=== PATIENT | female | born 1960 | race American Indian/Alaskan Native ===

== ENCOUNTER 2018-02-04 05:09 | Observation (INO) | payer OTHER ==
[2018-02-04] MEDS ORDERED: DECADRON IV ONE (05:22)
[2018-02-04] MEDS ORDERED: BENADRYL IV ONE (05:22)
[2018-02-04] MEDS ORDERED: PEPCID IV ONE (05:23)
--- NOTE | 2018-02-04 05:28 | Emergency Department Report ---
HPI - General Chief Complaint: Allergic Reaction Time Seen by Provider: 02/04/18 05:24 - HPI HPI: 57-year-old female with a past medical history hypertension on Lisinopril for many years presents to the hospital complaints of tongue swelling since 3 AM. Patient noticed swelling to the left side of her tongue. Symptoms have worsened now spread to the right side of her tongue. Daughter's at the bedside state the swelling has worsened in the last 30 minutes. At this time patient is able to swallow secretions and does not complain of throat tightness. ED Past Medical Hx - Past Medical History Hx Hypertension: Yes - Surgical History Additional Surgical History: Hysterectomy - Social History Smoking Status: Current Every Day Smoker Substance Use Type: None - Medications Home Medications: Home Medications Medication Instructions Recorded Confirmed Last Taken Type HCTZ 25 mg PO DAILY 02/04/18 02/04/18 Unknown History Lisinopril [Zestril TAB] 40 mg PO QDAY 02/04/18 02/04/18 Unknown History ED Review of Systems ROS: Stated complaint: ALLERGIC REACTION Other details as noted in HPI Comment: All other systems reviewed and negative Physical Exam - Physical Exam Vital Signs: Vital Signs 02/04/18 05:16 Temperature 99.3 F Pulse Rate 89 Respiratory 18 Rate Blood Pressure 124/82 O2 Sat by Pulse 96 Oximetry Physical Exam: General: No limitations, patient is alert in no acute distress Head exam: Atraumatic, normocephalic Eyes exam: Normal appearance ENT: Moist mucous membrane, patient has tongue swelling left greater than right. Able to swallow secretions without difficulty breathing Neck exam: Normal inspection, full range of motion, no meningismus nontender Respiratory exam: Clear to auscultation bilateral, no wheezes, rales, crackles Cardiovascular: Normal rate and rhythm, normal heart sounds Abdomen: Soft, nondistended, and nontender, with normal bowel sounds, no rebound, or guarding Extremity: Full range of motion normal inspection no deformity Back: Normal Inspection, full range of motion, no tenderness Neurologic: Alert, oriented x3, cranial nerves intact, no motor or sensory deficit Psychiatric: normal affect, normal mood Skin: Warm, dry, intact ED Course Vital Signs 02/04/18 05:16 Temperature 99.3 F Pulse Rate 89 Respiratory 18 Rate Blood Pressure 124/82 O2 Sat by Pulse 96 Oximetry - Consultations Consultation #1: 02/04/18 05:28 case d/w Dr Teague with anesthesia regarding intubation, he will come to assess pt. ED Medical Decision Making - Lab Data Result diagrams: 02/04/18 05:40 02/04/18 05:40 Lab Results 02/04/18 02/04/18 Range/Units 05:40 05:40 WBC 5.7 (4.5-11.0) K/mm3 RBC 4.92 (3.65-5.03) M/mm3 Hgb 13.3 (10.1-14.3) gm/dl Hct 40.4 (30.3-42.9) % MCV 82 (79-97) fl MCH 27 L (28-32) pg MCHC 33 (30-34) % RDW 14.8 (13.2-15.2) % Plt Count 168 (140-440) K/mm3 Lymph % (Auto) 31.8 (13.4-35.0) % Hawkins % (Auto) 8.9 H (0.0-7.3) % Eos % (Auto) 2.7 (0.0-4.3) % Baso % (Auto) 0.6 (0.0-1.8) % Lymph # 1.8 (1.2-5.4) K/mm3 Hawkins # 0.5 (0.0-0.8) K/mm3 Eos # 0.2 (0.0-0.4) K/mm3 Baso # 0.0 (0.0-0.1) K/mm3 Seg Neutrophils % 56.0 (40.0-70.0) % Seg Neutrophils # 3.2 (1.8-7.7) K/mm3 Sodium 144 (137-145) mmol/L Potassium 3.5 L (3.6-5.0) mmol/L Chloride 102.2 (98-107) mmol/L Carbon Dioxide 28 (22-30) mmol/L Anion Gap 17 mmol/L BUN 23 H (7-17) mg/dL Creatinine 1.0 (0.7-1.2) mg/dL Estimated GFR > 60 ml/min BUN/Creatinine Ratio 23 % Glucose 110 H (65-100) mg/dL Calcium 9.8 (8.4-10.2) mg/dL - Medical Decision Making ESTELLA inhibitor angioedema Patient received Decadron, Benadryl, and Pepcid Patient requires admission and close observation for airway compromise Dr Teague with anesthesiology aware and will be involved in monitoring patient Hospitalist informed for admission - Differential Diagnosis allergic reaction, ESTELLA inhibitor edema Critical Care Time: No Critical care attestation.: If time is entered above; I have spent that time in minutes in the direct care of this critically ill patient, excluding procedure time. ED Disposition Clinical Impression: ESTELLA inhibitor-aggravated angioedema, Tongue swelling Disposition: OP ADMIT IP TO THIS HOSP Is pt being admited?: Yes Condition: Serious Time of Disposition: 05:30 (Dr Schafer/hosp)
[2018-02-04 05:51] LABS: Basophils % (Auto) 0.6 % (0.0-1.8); Eosinophils # (Auto) 0.2 K/mm3 (0.0-0.4); Eosinophils % (Auto) 2.7 % (0.0-4.3); Hematocrit 40.4 % (30.3-42.9); Hemoglobin 13.3 gm/dl (10.1-14.3); Lymphocytes # (Auto) 1.8 K/mm3 (1.2-5.4); Lymphocytes % (Auto) 31.8 % (13.4-35.0); Mean Corpuscular HGB Conc 33 % (30-34); Mean Corpuscular Hemoglobin 27 pg (28-32); Mean Corpuscular Volume 82 fl (79-97); Monocytes # (Auto) 0.5 K/mm3 (0.0-0.8); Monocytes % (Auto) 8.9 % (0.0-7.3); Platelet Count 168 K/mm3 (140-440); Red Blood Count 4.92 M/mm3 (3.65-5.03); Red Cell Distribution Width 14.8 % (13.2-15.2)
[2018-02-04 06:04] LABS: BUN/Creatinine Ratio 23; Blood Urea Nitrogen 23 mg/dL (7-17); Calcium 9.8 mg/dL (8.4-10.2); Hemolysis Index 3
[2018-02-04] MEDS ORDERED: ZOFRAN IV PRN (06:05)
[2018-02-04] MEDS ORDERED: TYLENOL PR PRN (06:06)
[2018-02-04] MEDS: BENADRYL IV SCH ×2 (06:08→14:00)
[2018-02-04] MEDS: SOLU-Medrol IV SCH ×2 (06:21→14:00)
--- NOTE | 2018-02-04 07:23 | History and Physical Report ---
CHIEF COMPLAINT: Swelling of the tongue. HISTORY OF PRESENT ILLNESS: The patient is a 57-year-old female who is on lisinopril for treatment of hypertension for many years and states she woke up this morning with swelling on the left side of the tongue that got aggressively wore and the tongue became bigger over the last 30 minutes or more. The patient is still able to talk with some difficulty and able to swallow saliva. There is no history of shortness of breath. No history of chest pain, no history of dizziness. PAST MEDICAL HISTORY: Pertinent for hypertension. PAST SURGICAL HISTORY: Pertinent for hysterectomy. FAMILY HISTORY: Family history is noncontributory. SOCIAL HISTORY: The patient smokes cigarettes, does not drink alcohol and does not use illicit drugs. MEDICATIONS: The patient is on lisinopril 40 mg by mouth daily, hydrochlorothiazide 25 mg by mouth daily. ALLERGIES: THE PATIENT IS ALLERGIC TO LISINOPRIL. REVIEW OF SYSTEMS: CONSTITUTIONAL: There is no fever, no chills, no diaphoresis. HEENT: There is no headache or sore throat, but there is swelling of tongue. CARDIOVASCULAR SYSTEM: There is no chest pain or orthopnea. RESPIRATORY SYSTEM: There is no shortness of breath or cough. GASTROINTESTINAL SYSTEM: There is no nausea, no vomiting, no abdominal pain, diarrhea, or constipation. NEUROLOGICAL SYSTEM: There is no numbness, no dizziness, no altered mental status. MUSCULOSKELETAL SYSTEM: There is no joint pain or swelling. DERMATOLOGICAL SYSTEM: There is no skin rash or itching. GENITOURINARY SYSTEM: There is no dysuria, hematuria, or flank pain. Rest of system review is normal. PHYSICAL EXAMINATION: GENERAL: At the time of exam, the patient was found to be alert, oriented x 3, and in mild distress due to swelling of the lung. VITAL SIGNS: Shows temperature of 99.3, pulse of 89, respirations 18, blood pressure 124/82, O2 sat of 96% on room air. HEENT: Showed pupils to be equal, round, reactive to light and accommodating. Extraocular muscles are intact. Oral mucosa shows swollen tongue with no excoriation or bleeding in the mouth. The patient is able to talk with some mild difficulty. NECK: Neck is supple with no JVD or carotid bruit. CARDIOVASCULAR: Showed normal first and second heart sounds with no gallops or murmurs. RESPIRATORY: Show good air entry on both sides of the lungs with no abnormal breath sounds. GASTROINTESTINAL: Show abdomen to be full, soft, nontender with no organomegaly or rigidity. NEUROLOGIC: Shows no focal deficit. MUSCULOSKELETAL: Show no joint swelling or tenderness. DERMATOLOGICAL: Show no skin rash. GENITOURINARY: Showing no costovertebral angle tenderness. PERTINENT LABORATORY DATA AND IMAGING STUDIES: The patient's lab tests are pending at this time and no imaging studies were ordered at this time. DIAGNOSES: Angioedema due to ESTELLA Inhibitor (lisinopril). PLAN OF CARE: 1. The patient will be admitted to medical floor and will be taken off ESTELLA inhibitor for the rest of her life. 2. The patient is awaiting evaluation by the global security architect for possible intubation ordered by the Emergency Room physician. 3. The patient will be on IV Solu-Medrol 60 mg every 8 hours. 4. The patient will be on IV Pepcid 20 mg daily. He will be on IV Benadryl 25 mg every 8 hours. 5. The patient will also be on Tylenol 650 mg rectally as needed for fever and headache and will be on IV Zofran 4 mg every 6 hours for nausea and vomiting. 6. The patient will be on her home medication as shown in the medication reconciliation except with ESTELLA inhibitor discontinued completely and forever. JOB# [id number] [facility] [place]
[2018-02-04 08:59] VITALS: BP 113/74
[2018-02-04] MEDS ORDERED: K-DUR PO ONE (09:34)
[2018-02-04] MEDS ORDERED: PEPCID IV SCH (10:00)
[2018-02-04] MEDS ORDERED: HEPARIN SUB-Q SCH (10:00)
[2018-02-04] MEDS ORDERED: NON-FORMULARY (Hctz 25 MG) PO SCH (10:00)
[2018-02-04] MEDS ORDERED: HCTZ PO SCH (10:00)
--- NOTE | 2018-02-04 16:27 | Discharge Summary ---
Providers - Providers Date of Admission: 02/04/18 06:25 Date of discharge: 02/04/18 Attending physician: BENEDICTO ALTAMIRANO 02/04/18 05:26 Consult to Physician [CONS] Urgent Comment: Consulting Provider: NAYAN DOMINGUEZ Physician Instructions: Reason For Exam: tongue swelling angioedema Primary care physician: BICYCLE RENTAL CLERK Hospitalization Condition: Serious Disposition: DC-30 STILL A PATIENT Exam - Constitutional Vitals: Temp Pulse Resp BP Pulse Ox 98.4 F 82 16 113/74 98 02/04/18 08:58 02/04/18 08:58 02/04/18 08:58 02/04/18 08:58 02/04/18 08:58 Plan Activity: advance as tolerated Weight Bearing Status: Weight Bear as Tolerated Diet: low fat Follow up with: PRIMARY CARE, [Primary Care Provider] - 7 Days Prescriptions: diphenhydrAMINE [Benadryl CAP] 25 mg PO Q8HR PRN #10 capsule PRN Reason: Itching
== END 2018-02-04 19:00 | disposition home or self-care (01) ==
LOC: ED 05:09 → INTOOBSV 06:25 → 3A 06:25
PROVIDERS: ADMIT Internal Medicine; ATTEND Internal Medicine
DX: T78.3XXA Angioneurotic edema, initial encounter (principal); T46.4X5A Adverse effect of angiotensin-converting-enzyme inhibitors, initial encounter; I10 Essential (primary) hypertension; F17.210 Nicotine dependence, cigarettes, uncomplicated
CPT/HCPCS: 36415; 80048; 85025; 96372; 96374; 96375; 96376; 99285; G0378; J1100; J1200; J1644